=== PATIENT | female | born 1990 | race Caucasian/White ===

== ENCOUNTER 2016-11-03 18:34 | Emergency (ER) | payer OTHER ==
[2016-11-03 19:29] LABS: BASOPHILS 0.3 % (0-2); EOSINOPHILS 0.9 % (0-7); HEMATOCRIT 36.2 % (36.0-48.0); HEMOGLOBIN 12.4 g/dL (12-16); IMMATURE GRANULOCYTES 0.3 % (0-5); LYMPHOCYTES 36.2 % (15-50); MCHC 34.3 g/dL (31.0-37.0); MCV 84.6 fL (80.0-100.0); MEAN PLATELET VOLUME 10.8 fL (7.4-10.4); MONOCYTES 5.5 % (2-11); NEUTROPHILS 56.8 % (40-80); PLATELET COUNT 180 10x3/uL (130-400); RBC 4.28 10x6/uL (4.00-5.40); RDW 12.3 % (11.5-14.5); WBC 7.8 10x3/uL (4.8-10.8)
[2016-11-03 19:46] LABS: HCG SERUM POSITIVE (NEGATIVE)
[2016-11-03 19:52] LABS: APPEARANCE CLEAR (CLEAR); BILIRUBIN NEGATIVE (NEGATIVE); COLOR YELLOW (YELLOW); GLUCOSE NEGATIVE (NEGATIVE); KETONE NEGATIVE (NEGATIVE); LEUKOCYTE ESTERASE NEGATIVE (NEGATIVE); NITRITE NEGATIVE (NEGATIVE); PROTEIN NEGATIVE (NEGATIVE); UROBILINOGEN NORMAL (NORMAL)
[2016-11-03 19:53] LABS: BACTERIA FEW /hpf (NONE SEEN); EPITHELIAL CELLS OCC /hpf (0-5); RED CELLS - URINE 0-5 /hpf (0-5); WHITE CELLS - URINE 0-5 /hpf (0-5)
== END 2016-11-03 23:00 | disposition home or self-care (01) ==
LOC: D.ER 18:34
PROVIDERS: Emergency Medicine
DX: O20.0 Threatened abortion (principal); Z3A.19 19 weeks gestation of pregnancy